=== PATIENT | male | born 1995 | race Caucasian/White ===

== ENCOUNTER 2020-04-15 08:46 | Emergency (ER) | payer OTHER ==
[~2020-04-15] VITALS: Ht 175.3 cm; Wt 63.5 kg
[2020-04-15 08:48] VITALS: BP 136/79
[2020-04-15] MEDS: KETOROLAC 30 MG/ML VIAL IM ONE (09:33)
[2020-04-15] MEDS: NACL 0.9% 1,000 ML IV ONE (09:34)
[2020-04-15] MEDS: ONDANSETRON 4 MG/2 ML VIAL IVP ONE (09:34)
--- NOTE | 2020-04-15 09:34 | NUR ---
Ultrasound at bedside.
[2020-04-15] MEDS: MORPHINE SULFATE 4 MG/ML SYR IVP ONE (09:35)
--- NOTE | 2020-04-15 09:39 | NUR ---
25 YEAR OLD MALE COMPLAINS OF 7/10 RIGHT FLANK PAIN THAT RADIATES TO GROIN X TODAY. PT STATES HE HAS SOME NAUSEA. PT DENIES ANY CHANGE IN URINATION OR DEFECATION. PT AOX4, BREATHING EVEN AND UNLABORED, SKIN WARM AND DRY. BED IN LOWEST POSITION, LOCKED, BED RAIL UPX1. PMH - DENIES ALLERGIES - NKA
[2020-04-15 10:02] LABS: BASOPHILS % (AUTO) 0.4 % (0.0-2.0); EOSINOPHILS # (AUTO) 0.1 K/uL (0-0.4); EOSINOPHILS % (AUTO) 1.1 % (0.0-4.0); HEMATOCRIT 47.8 % (36-52); HEMOGLOBIN 16.2 g/dL (12.0-18.0); LYMPHOCYTES # (AUTO) 0.8 K/uL (2.0-11.5); LYMPHOCYTES % (AUTO) 14.1 % (20.5-51.1); MEAN CORPUSCULAR HEMOGLOBIN 31 pg (27-31); MEAN CORPUSCULAR HGB CONC 34 g/dL (33-37); MEAN CORPUSCULAR VOLUME 90.9 fL (80-94); MONOCYTES # (AUTO) 0.3 K/uL (0.8-1.0); MONOCYTES % (AUTO) 4.4 % (1.7-9.3); NEUTROPHILS # (AUTO) 4.6 K/uL (1.8-7.7); PLATELET COUNT (AUTO) 192 K/uL (140-450); RED BLOOD CELL COUNT(AUTO) 5.26 MIL/uL (4.20-6.10); RED CELL DISTRIBUTION WIDTH 12.6 % (11.6-13.7); WHITE BLOOD COUNT (AUTO) 5.8 K/uL (4.8-10.8)
--- NOTE | 2020-04-15 10:30 | NUR ---
PT RESTING WITH EYES CLOSED, BREATHING EVEN AND UNLABORED
[2020-04-15 10:38] LABS: ALBUMIN 4.8 g/dL (3.4-5.0); CARBON DIOXIDE 26.9 mmol/L (21-32); POTASSIUM 3.9 mmol/L (3.5-5.1); TOTAL BILIRUBIN 0.5 mg/dL (0.0-1.0)
[2020-04-15 11:18] LABS: APPEARANCE,URINE HAZY (CLEAR); BILIRUBIN,URINE 1+ (NEGATIVE); BLOOD, URINE 3+ (NEGATIVE); COLOR,URINE ORANGE (YELLOW); LEUKOCYTE ESTERASE ,URINE NEGATIVE (NEGATIVE); NITRITE, URINE NEGATIVE (NEGATIVE); PH,URINE 6.5 (5.0-9.0); UGLUCOSE NEGATIVE (NEGATIVE)
[2020-04-15 11:44] LABS: RBC,URINE 80-100 /HPF (0-5); WBC,URINE 0-5 /HPF (0-5)
--- NOTE | 2020-04-15 12:00 | NUR ---
Patient discharged with v/s stable. Written and verbal after care instructions about ureteral colic given and explained. Patient alert, oriented and verbalized understanding of instructions. Ambulatory with steady gait. All questions addressed prior to discharge. ID band removed. Patient advised to follow up with PMD. Rx of zofran, flomax, norco given. Patient educated on indication of medication including possible reaction and side effects. Opportunity to ask questions provided and answered.
[2020-04-15 12:09] VITALS: BP 89/54
== END 2020-04-15 12:00 | disposition home or self-care (01) ==
LOC: MED 08:46
DX: N20.0 Calculus of kidney (principal); N31.9 Neuromuscular dysfunction of bladder, unspecified
CPT/HCPCS: 36415; 76770; 80053; 81001; 83690; 85025; 96372; 96374; 96375; 99284; J1885; J2270; J2405; Q0092